=== PATIENT | male | born 1985 | race Caucasian/White ===

== ENCOUNTER 2016-10-15 19:33 | Emergency (ER) | payer MEDICAID ==
[~2016-10-15] VITALS: Ht 167.6 cm; Wt 83.5 kg
[~2016-10-15 19:33] MED LIST: HYDR-3011 PO; KENC1 TOP
[2016-10-15 19:45] VITALS: Ht 167.6 cm; Wt 83.5 kg
[2016-10-15] MEDS ORDERED: KENC1 TOP (20:00)
[2016-10-15] MEDS ORDERED: ALBU8.5H3 INH (20:00)
[2016-10-15] MEDS ORDERED: HYDR-3011 PO (20:00)
[2016-10-15] MEDS ORDERED: GUAI120S26 PO (20:00)
[2016-10-15] MEDS ORDERED: IBUP-1542 PO (20:00)
--- NOTE | 2016-10-15 20:20 | ERD ---
ER Documentation Chief Complaint Date/Time DATE: 10/15/16 TIME: 20:08 Chief Complaint Pt with rash to L hand and lip x 1 year, cough x 4 days. HPI 31-year-old male presents in emergency department for complaints of rash in the hand and in the lip area for one year now. Patient's complaining of itching on affected area, burning pain 4/10 scale, worse upon touching the area. Patient also has been having dry cough, does not cough up any phlegm or blood. Patient has been having cough for 4 days. Patient does not have any chest pain or palpitations. Patient has been having runnynose nasal congestion clear nasal discharge. Patient does not have any sore throat. Then. Patient denies taking any medications of symptoms. Patient denies any fever or chills. ROS All systems reviewed and are negative except as per history of present illness. Medications Home Meds Active Scripts Albuterol Sulfate* (Proair HFA*) 8.5 Gm Hfa.aer.ad, 2 PUFF INH Q4H Y for WHEEZING AND SOB, #1 INHALER Prov:STACIE SANCHEZ NP 10/15/16 Ibuprofen* (Motrin*) 600 Mg Tab, 600 MG PO Q6H Y for PAIN AND OR ELEVATED TEMP, #30 TAB Prov:STACIE SANCHEZ NP 10/15/16 Ctffubetmiz-E-Lpvomduyip Hb* (Guaifenesin* DM Syrup) 120 Ml Syrup, 10 ML PO Q4H Y for COUGH, #120 ML Prov:STACIE SANCHEZ NP 10/15/16 Triamcinolone Acetonide (Triamcinolone Acetonide) 0.1% - 15 Gm Cream.gm., 1 APPLIC TOP BID, #1 TUB Prov:STACIE SANCHEZ NP 10/15/16 Hydroxyzine Hcl* (Hydroxyzine Hcl*) 25 Mg Tablet, 25 MG PO Q8H Y for ITCHING, # 30 TAB Prov:STACIE SANCHEZ NP 10/15/16 Triamcinolone Acetonide* (Kenalog*) 0.1%-15GM Cr, 1 APPLIC TOP BID, #1 TUB Prov:STACIE SANCHEZ NP 07/10/15 Hydroxyzine Hcl* (Hydroxyzine Hcl*) 25 Mg Tablet, 25 MG PO Q8H Y for ITCHING, # 30 TAB Prov:STACIE SANCHEZ RIGO 07/10/15 Reported Medications [none] Unknown Strength No Conflict Check 07/10/15 Allergies Allergies: Coded Allergies: No Known Allergy (Unverified , 12/16/11) PMhx/Soc Medical and Surgical Hx: pt denies Medical Hx, pt denies Surgical Hx Hx Miscellaneous Medical Probl: No Hx Alcohol Use: No Hx Substance Use: No Hx Tobacco Use: No FmHx Family History: No coronary disease, No diabetes, No other Physical Exam Vitals Vital Signs Date Time Temp Pulse Resp B/P Pulse Ox O2 Delivery O2 Flow Rate FiO2 10/15/16 19:45 98.4 74 18 137/90 97 Physical Exam GENERAL: The patient is well developed and appropriate for usual state of health, in no apparent distress. HEENT: Atraumatic. Ears: Normal tympanic membrane, no erythema or bulging. No ear canal swelling. No ear discharge. Nose: Erythematous nasal turbinates with clear nasal discharge. Throat: oropharynx erythematous with postnasal drip. No tonsillar swelling or tonsillar exudates. No lymphadenopathy. CHEST: Clear to auscultation bilaterally. There are no rales, wheezes or rhonchi. HEART: Regular rate and rhythm. No murmurs, clicks, rubs or gallops. No S3 or S4. ABDOMEN: Soft, nontender and nondistended. Good bowel sounds. No rebound or guarding. No gross peritonitis. No gross organomegaly or masses. No Pantoja sign or McBurney point tenderness. BACK: No midline or flank tenderness. EXTREMITIES: Equal pulses bilaterally. There is no peripheral clubbing, cyanosis or edema. No focal swelling or erythema. Full range of motion. Grossly neurovascularly intact. NEURO: Alert and oriented. Cranial nerves 2-12 intact. Motor strength in all 4 extremities with 5/5 strength. Sensation grossly intact. Normal speech and gait. SKIN: Maculopapular rash noted in the dorsal aspect of the left hand also and also near the lip area. There is no apparent rash or petechia. The skin is warm and dry. HEMATOLOGIC AND LYMPHATIC: There is no evidence of excessive bruising or lymphedema. No gross cervical, axillary, or inguinal lymphadenopathy. Procedures/MDM Medical Decision Making: Patient symptoms are most likely consistent with upper respiratory tract infection, which viral in origin. There is low suspicion for Pneumonia at this time since patients lungs sounds are clear, patient O2 saturation is normal and patient doesnt show any respiratory distress. Radiology exam is not indicated at this time. There is low suspicion for other cardiopulmonary emergencies at this time such as CHF, Pulmonary Embolism, Pneumothorax, or any other cardiopulmonary emergencies at this time. There is low suspicion for sepsis. Patient appears well and is hemodynamically stable. Fever is controlled with medicines. Patient's rash is nonspecific at this time, possibly nonspecific dermatitis, numbness further evaluation. Recommended to see onboarding specialist for further evaluation of rash. Not contagious at this time. No symptoms of anaphylactic shock. No symptoms of any urticaria. No symptoms of any coagulopathies. Disposition: Home. Condition: Stable Prescriptions: Triamcinolone 0.1% cream, guaifenesin DM, hydroxyzine, ibuprofen Instructions: Patient is advised to take medications as prescribed. Patient is advised to rest. Patient advised to increase fluid intake, do humidifier at home and if possible, do salt water gargles. Patient is advised that if symptoms are worse, shortness of breath, uncontrolled fever, stridor, vomiting, worst signs and symptoms to return to emergency department immediately. Otherwise, patient is advised to follow up with primary doctor in 5-7 days. Departure Diagnosis: Primary Impression: URI (upper respiratory infection) URI type: unspecified viral URI Qualified Code: J06.9 - Viral upper respiratory tract infection Additional Impression: Rash Condition: Stable Patient Instructions: Self-Care for Skin Rashes, Uri, Viral, No Abx (Adult) Referrals: [facility] Usted se chávez hecho un examen mdico de control que le indica que no est en guy condicin que requiera tratamiento urgente en el Departamento de Emergencia. Un estudio ms profundo y el tratamiento de desai condicin pueden esperar sin ningn riesgo hasta que usted sea atendida/o en el consultorio de desai mdico o guy cl ravinder. Es responsabilidad suya arreglar guy kevin para el seguimiento del clarisa. MANEJO DE CONDICIONES NO URGENTES EN EL FUTURO 1) Si usted tiene un mdico de atencin primaria: Usted debera llamar a desai mdico de atencin primaria antes de venir al departamento de emergencia. Despus de las horas de consultorio, desai doctor o desai asociado/a est disponible por telfono. El mdico o enfermero de erica en el servicio telefnico puede asesorarle por tyrel medio para atender el problema, o clarisa contrario se puede programar guy kevin. 2) Si usted no tiene un mdico de atencin primaria: Llame al mdico o clnica de referencia que aparece abajo diana las horas de consultorio para hacer guy kevin para que le vean. CLINICAS: [facility] [phone] [facility] [phone] [facility]. [facility] [phone] [facility] [phone] [facility]. [facility] [phone] [address] [facility]. [phone] [address] [facility]. [facility] () Usted se chávez hecho un examen mdico de control que le indica que no est en guy condicin que requiera tratamiento urgente en el Departamento de Emergencia. Un estudio ms profundo y el tratamiento de desai condicin pueden esperar sin ningn riesgo hasta que usted sea atendida/o en el consultorio de desai mdico o guy cl ravinder. Es responsabilidad suya arreglar guy kevin para el seguimiento del clarisa. MANEJO DE CONDICIONES NO URGENTES EN EL FUTURO 1) Si usted tiene un mdico de atencin primaria: Usted debera llamar a desai mdico de atencin primaria antes de venir al departamento de emergencia. Despus de las horas de consultorio, desai doctor o desai asociado/a est disponible por telfono. El mdico o enfermero de erica en el servicio telefnico puede asesorarle por tyrel medio para atender el problema, o clarisa contrario se puede programar guy kevin. 2) Si usted no tiene un mdico de atencin primaria: Llame al mdico o condado institucions de referencia que aparece abajo diana las horas de consultorio para hacer guy kevin para que le vean. SI USTED NO PUEDE PAGAR PARA MARK UN MEDICO puede ir a: [facility] [address] [place] [address] [facility] [address] [place] [address] [facility] [address] [place] [address] [facility] [address] [place] [place], [place] [id number] CUISIA,STACIE Bustamante NP October 15, 2016 20:19
== END 2016-10-15 20:01 | disposition home or self-care (01) ==
LOC: E/R 19:33
DX: J06.9 Acute upper respiratory infection, unspecified (principal)
CPT/HCPCS: 99284

== ENCOUNTER 2017-06-22 21:48 | Emergency (ER) | END 2017-06-23 01:56 | disposition home or self-care (01) ==

== ENCOUNTER 2017-08-11 17:34 | Emergency (ER) | END 2017-08-11 21:12 | disposition home or self-care (01) ==

== ENCOUNTER 2018-01-11 21:45 | Emergency (ER) | END 2018-01-11 23:57 | disposition home or self-care (01) ==

== ENCOUNTER 2018-08-04 21:09 | Emergency (ER) | payer MEDICAID ==
[~2018-08-04] VITALS: Wt 83.7 kg
[~2018-08-04 21:09] MED LIST changes: +ACET500C5 PO; +ALBU8.5H8 INH; +FAMO-96 PO; +GUAI120S26 PO; -HYDR-3011 PO; +HYDR-843 PO; +IBUP-1542 PO; +IBUP-1561 PO; -KENC1 TOP; +ONDA4TAB14 PO; +TRIA15CR55 TOP
--- NOTE | 2018-08-05 02:01 | ERD ---
ER Documentation Chief Complaint Chief Complaint bib self, cc: cough for 2 days, took tylenol yesterday HPI 33-year-old male, previously healthy, presents the emergency department, complaining of 3 days with worsening of cough productive of yellow sputum, associated with fever and chills. The patient also reports sore throat and general malaise. ROS All systems reviewed and are negative except as per history of present illness. Medications Home Meds Active Scripts Promethazine HCl/Codeine (Prometh-Codein 6.25-10 mg/5 ml) 5 Ml Syrup, 5 ML PO BID for cough, #60 ML Prov:KELLY CABRERA MD 08/05/18 Azithromycin* (Zithromax*) 250 Mg Tablet, 250 MG PO DAILY for 4 Days, TAB Prov:KELLY CABRERA MD 08/05/18 Ibuprofen* (Motrin*) 600 Mg Tab, 600 MG PO Q8, #20 TAB Prov:KELLY CABRERA MD 08/05/18 Ibuprofen* (Motrin*) 400 Mg Tab, 400 MG PO Q6H PRN for PAIN AND OR ELEVATED TEMP, #30 TAB Prov:GAMA ASTUDILLO PA-C 01/11/18 Ibuprofen* (Motrin*) 600 Mg Tab, 600 MG PO Q6, #30 TAB Prov:RITESH KAMARA PA-C 08/11/17 Ondansetron (Ondansetron Odt) 4 Mg Tab.rapdis, 4 MG PO Q6H PRN for NAUSEA AND/OR VOMITING, #20 TAB Prov:SANDRO ARAUJO 06/23/17 Acetaminophen* (Tylophen*) 500 Mg Capsule, 1 CAP PO Q6H PRN for PAIN AND OR ELEVATED TEMP, #20 CAP Prov:SANDRO ARAUJO 06/23/17 Famotidine* (Pepcid*) 20 Mg Tablet, 20 MG PO DAILY for 30 Days, TAB Prov:SANDRO ARAUJO 06/23/17 Albuterol Sulfate* (Proair HFA*) 8.5 Gm Hfa.aer.ad, 2 PUFF INH Q4H PRN for WHEEZING AND SOB, #1 INHALER Prov:STACIE SANCHEZ NP 10/15/16 Ibuprofen* (Motrin*) 600 Mg Tab, 600 MG PO Q6H PRN for PAIN AND OR ELEVATED TEMP, #30 TAB Prov:STACIE SANCHEZ NP 10/15/16 Hzhjutktsum-Z-Jbilhdjscq Hb* (Guaifenesin* DM Syrup) 120 Ml Syrup, 10 ML PO Q4H PRN for COUGH, #120 ML Prov:STACIE SANCHEZ NP 10/15/16 Triamcinolone Acetonide (Triamcinolone Acetonide) 0.1% - 15 Gm Cream.gm., 1 APPLIC TOP BID, #1 TUB Prov:STACIE SANCHEZ NP 10/15/16 Hydroxyzine Hcl* (Hydroxyzine Hcl*) 25 Mg Tablet, 25 MG PO Q8H PRN for ITCHING, #30 TAB Prov:STACIE SANCHEZ NP 10/15/16 Triamcinolone Acetonide* (Kenalog*) 0.1%-15GM Cr, 1 APPLIC TOP BID, #1 TUB Prov:STACIE SANCHEZ NP 07/10/15 Hydroxyzine Hcl* (Hydroxyzine Hcl*) 25 Mg Tablet, 25 MG PO Q8H PRN for ITCHING, #30 TAB Prov:STACIE SANCHEZ NP 07/10/15 Reported Medications [none] Unknown Strength No Conflict Check 07/10/15 Allergies Allergies: Coded Allergies: No Known Allergy (Unverified , 08/11/17) PMhx/Soc History of Surgery: Yes (appendectomy) Anesthesia Reaction: No Hx Neurological Disorder: No Hx Respiratory Disorders: No Hx Cardiac Disorders: No Hx Psychiatric Problems: No Hx Miscellaneous Medical Probl: No Hx Alcohol Use: No Hx Substance Use: No Hx Tobacco Use: No Smoking Status: Never smoker FmHx Family History: No diabetes, No coronary disease Physical Exam Vitals Vital Signs Date Temp Pulse Resp B/P (MAP) Pulse Ox O2 O2 Flow FiO2 Time Delivery Rate 08/04/18 99.5 115 19 148/92 100 21:28 (110) Physical Exam Const: No acute distress Head: Atraumatic Eyes: Normal Conjunctiva ENT: Erythematous oropharynx, normal External Ears, Nose and Mouth. Neck: Full range of motion. No meningismus. Resp: Rhonchi to auscultation bilaterally Cardio: Regular rate and rhythm, no murmurs Abd: Soft, non tender, non distended. Normal bowel sounds Skin: No petechiae or rashes Back: No midline or flank tenderness Ext: No cyanosis, or edema Neur: Awake and alert Psych: Normal Mood and Affect Results 24 hrs Current Medications Medications Dose Sig/[place] Start Time Status Last (Trade) Ordered Route PRN Stop Time Admin Dose Reason Admin Ibuprofen 600 mg ONCE ONCE 08/05/18 08/05/18 (Motrin) PO 02:30 08/05/18 02:12 02:31 500 mg ONCE ONCE 08/05/18 08/05/18 Azithromycin PO 02:30 08/05/18 02:12 (Zithromax) 02:31 Procedures/MDM Vital signs stable, no respiratory distress. Differential diagnosis include but not limited to: Respiratory infection bacterial/viral/fungal. Influenza, pneumonitis, allergies, GERD. Less likely foreign body aspiration, cardiac related. Physical examination and clinical presentation consistent most likely with viral infection with early superimposed bacterial infection. During the ED course the patient remained stable, no new complaints. Treatment options and clinical impression discussed with the patient who agrees with management. The patient is stable to be treated outpatient and will be discharged home. Some side effects of prescribed medications (headache, rash, nausea, vomiting, diarrhea, interactions with other medications) were reviewed. The patient needs to follow up with the primary care provider in the next 48h. If symptoms persist, worsen or new symptoms develop, then patient should return to the ED immediately. Disclaimer: Inadvertent spelling and grammatical errors are likely due to EHR/dictation software use and do not reflect on the overall quality of patient care. Also, please note that the electronic time recorded on this note does not necessarily reflect the actual time of the patient encounter. Departure Diagnosis: Primary Impression: Cough Condition: Stable Additional Instructions: Muchas shyanne por [facility] para desai servicio. Esperamos que en desai visita a la eva de emergencia desai problema medico haya sido solucionado y que se sienta mucho mejor. Para estar seguros que desai mejoria sigue en proceso, le pedimos el favor de hacer guy kevin de seguimiento medico con desai doctor primario en los proximos 2-4 howard. Lleve con usted estos documentos y las medicinas recetadas. Si merissa sintomas empeoran, NO SE ESPERE, por favor regrese a eva de emergencia INMEDIATAMENTE. En clarisa que usted no tenga un mdico de atencin primaria: Llame al mdico o clnica comunitaria de referencia que aparece abajo diana las horas de consultorio para hacer guy kevin para que le vean. CLINICAS: [facility] [phone] [facility] [phone] [address] [facility] [phone] [address] [facility]. [facility] [phone] [place] [id number] [phone] [facility]. [phone] KELLY MACE MD Aug 05, 2018 02:01
[2018-08-05] MEDS ORDERED: IBUP-1542 PO (02:09)
[2018-08-05] MEDS ORDERED: AZIT250T PO (02:09)
[2018-08-05] MEDS ORDERED: PROM5SYR2 PO (02:09)
[2018-08-05] MEDS ORDERED: IBUPROFEN 600 MG TAB PO ONE (02:30)
[2018-08-05] MEDS ORDERED: AZITHROMYCIN 250 MG TAB PO ONE (02:30)
[2018-08-05 02:34] VITALS: BP 139/85; PULSE 70; RESP 18
== END 2018-08-05 02:35 | disposition home or self-care (01) ==
LOC: FTE 21:09
DX: R05 Cough (principal)
CPT/HCPCS: Z7502; Z7610; 99283